=== PATIENT | female | born 1965 | race Caucasian/White ===

== ENCOUNTER → 2017-12-30 07:58 | Outpatient (CLI) | payer MEDICAID, SELFPAY ==
--- NOTE | 2017-12-30 08:01 | HPBI_ITS ---
MAMMOGRAPHY - BILATERAL SCREENING REASON FOR EXAM: Female, 52 years old. Routine annual screening examination. PERTINENT HISTORY: Grandmother with breast cancer. TECHNIQUE: Digital bilateral breast jovani (3D mammographic acquisition) in the CC and MLO projections. 2-D mediolateral oblique (MLO) and craniocaudad (CC) views of both breasts were obtained. CAD: Full Field Digital Mammography with Computer Added Detection was performed. COMPARISON: Comparison is made with prior mammogram dated October 17, 2012 and October 22, 2012. FINDINGS: Breast Composition: The breasts are extremely dense, which lowers the sensitivity of mammography. There are no dominant masses or suspicious calcifications. No other significant abnormalities are identified. There has been no significant change since the prior study. HPBI/SCREENING MAMM (CAD), BILAT IMPRESSION: Stable bilateral screening mammogram. Yearly follow-up mammogram recommended. (A) ASSESSMENT CATEGORY: BIRADS Category 1: Negative. A letter regarding these results will be sent to the patient by the facility within 30 days. Approximately 10% of breast cancers are not detected by mammography. A normal mammogram should not delay biopsy of a clinically suspicious abnormality. [id number] Electronically Signed: Morris Franco MD at 9:58 EST Tel [phone], Service support ,
== END ==
PROVIDERS: Family Provider Family Medicine; PCP Family Medicine; Visit Provider Family Medicine
DX: Z12.31 Encounter for screening mammogram for malignant neoplasm of breast (principal)
CPT/HCPCS: 77063; 77067

== ENCOUNTER → 2018-01-09 13:35 | Outpatient (CLI) | payer MEDICAID, SELFPAY ==
[2018-01-14 15:52] LABS: HPV Reflexed? NOT INDICATED
== END ==
PROVIDERS: Family Provider Family Medicine; PCP Family Medicine; Visit Provider Family Medicine
DX: Z12.4 Encounter for screening for malignant neoplasm of cervix (principal)
CPT/HCPCS: 88175; G0145

== ENCOUNTER → 2020-01-08 12:40 | Outpatient (CLI) | payer MEDICAID, SELFPAY ==
[2017-11-09 22:35] VITALS: BMI 24.4
--- NOTE | 2020-01-08 12:46 | RAD_ITS ---
STUDY: X-RAY - LEFT SHOULDER REASON FOR EXAM: Female, 55 years old. No known injury. Pain in both shoulders for a long time getting worse. Patient states has always had physical jobs. TECHNIQUE: 4 view(s) of the shoulder. COMPARISON: None. FINDINGS: There is moderate degenerative arthrosis of the glenohumeral articulation. Normal acromioclavicular joint. Normal acromion. Normal humeral head and visualized proximal humerus. The soft tissue structures are unremarkable. Normal visualized pulmonary apex. RAD/Shoulder min 2 Views IMPRESSION: Moderate glenohumeral joint arthrosis. Electronically Signed: Jan Elam MD at 11:11 EST Tel , Service support ,
--- NOTE | 2020-01-08 12:46 | RAD_ITS ---
STUDY: X-RAY - RIGHT SHOULDER REASON FOR EXAM: Female, 55 years old. No known injury. Pain in both shoulders for a long time getting worse. Patient states has always had physical jobs. TECHNIQUE: 4 view(s) of the shoulder. COMPARISON: None. FINDINGS: There is moderate degenerative arthrosis of the glenohumeral articulation. Normal acromioclavicular joint. Normal acromion. Normal humeral head and visualized proximal humerus. The soft tissue structures are unremarkable. Normal visualized pulmonary apex. RAD/Shoulder min 2 Views IMPRESSION: Moderate glenohumeral joint arthrosis. Electronically Signed: Jan Elam MD at 11:11 EST Tel , Service support ,
--- NOTE | 2020-01-08 12:50 | RAD_ITS ---
STUDY: X-RAY - LEFT FOOT CLINICAL: Female, 55 years old. No known injury. Pain on the bottom of left heel since May 2019. TECHNIQUE: 3 view(s) of the foot. COMPARISON: None. FINDINGS: Normal talus, calcaneus, and tarsal bones. Normal visualized subtalar, talonavicular, calcaneocuboid, tarsal and tarsometatarsal articulations. Normal metatarsi. There is degenerative arthrosis of the metatarsophalangeal joint of the hallux with a hallux valgus deformity. Normal tibial and fibular sesamoid bones. Normal interphalangeal joint of the great toe. Normal phalanges of the great toe. Normal second through fifth metatarsophalangeal joints. Normal interphalangeal joints and phalanges of the lesser toes. The soft tissue structures are unremarkable. RAD/Foot min 3 Views IMPRESSION: Hallux valgus, bunion and arthrosis of the first MTP joint. Electronically Signed: Perico Cruz MD (Brooks) at 15:34 EST , Service support ,
== END ==
PROVIDERS: PCP Family Medicine; Referring Provider Family Medicine; Visit Provider Family Medicine
DX: M25.511 Pain in right shoulder (principal); M25.512 Pain in left shoulder; M79.672 Pain in left foot
CPT/HCPCS: 73030; 73630

== ENCOUNTER → 2020-04-06 09:43 | Outpatient (CLI) | payer MEDICAID, SELFPAY ==
[2017-11-09 22:35] VITALS: BMI 24.4
--- NOTE | 2020-04-06 09:44 | RAD_ITS ---
STUDY: X-RAY CHEST REASON FOR EXAM: Female, 55 years old. abdominal pain-getting full and uncomfortable quickly when eating, dyspnea, hx of asthma TECHNIQUE: PA and lateral views of the chest. COMPARISON: April 15, 2014. FINDINGS: Cardiac silhouette unremarkable. Pulmonary vascularity unremarkable. Aorta unremarkable. No focal patchy airspace opacities. No pleural effusions. Mild hyperaeration. Upper abdomen unremarkable. Osseous structures intact. No pneumothorax. RAD/Chest PA and Lateral IMPRESSION: No acute cardiopulmonary findings Electronically Signed: Ryne Tellez DO at 10:06 EDT Tel , Service support ,
--- NOTE | 2020-04-06 09:45 | RAD_ITS ---
STUDY: X-RAY - ABDOMEN/PELVIS REASON FOR EXAM: Female, 55 years old. abdominal pain-getting full and uncomfortable quickly when eating, dyspnea, hx of asthma TECHNIQUE: Two AP supine views of the abdomen and pelvis. COMPARISON: None. FINDINGS: Normal visualized lung bases. Constipation. Nonobstructive bowel gas pattern. Osseous structures intact. Minimal lumbar dextroscoliosis. Pelvic phleboliths. RAD/Abdomen Single View IMPRESSION: Constipation Electronically Signed: Ryne Tellez DO at 10:06 EDT Tel , Service support ,
== END ==
PROVIDERS: PCP Family Medicine; Referring Provider Family Medicine; Visit Provider Family Medicine
DX: R10.9 Unspecified abdominal pain (principal); R06.00 Dyspnea, unspecified
CPT/HCPCS: 71046; 74018

== ENCOUNTER → 2020-05-18 09:06 | Outpatient (CLI) | payer MEDICAID, SELFPAY ==
[2020-04-15 10:17] VITALS: BMI 25.8
--- NOTE | 2020-05-19 09:37 | PFT ---
INTRODUCTION: The patient is a 55-year-old female that presents for pulmonary function studies secondary to a diagnosis of asthma. Respiratory therapy reports good patient effort. Bronchodilators were used during testing. INTERPRETATION: Forced expiration spirometry demonstrates no evidence of a large airways obstructive ventilatory defect. There was no significant response to aerosolized bronchodilators. Spirograms are of good quality and plateau normally. Body plus tomography was performed and revealed an elevated TLC to 124% of predicted. Diffusing capacity by single breath CO is within normal limits. IMPRESSION: Probable small airways disease with a component of hyperinflation. Diffusing capacity is preserved.
== END ==
PROVIDERS: PCP Family Medicine; Referring Provider Internal Medicine Critical Care Medicine; Visit Provider Internal Medicine Critical Care Medicine
DX: J45.909 Unspecified asthma, uncomplicated (principal)
CPT/HCPCS: 94060; 94726; 94729

== ENCOUNTER → 2020-06-23 11:32 | Outpatient (CLI) | payer MEDICAID, SELFPAY ==
[2020-04-15 10:17] VITALS: BMI 25.8
[2020-06-14 05:42] VITALS: BMI 26.3
--- NOTE | 2020-06-23 11:35 | BI_ITS ---
MAMMOGRAPHY - BILATERAL SCREENING REASON FOR EXAM: Female, 55 years old. Routine annual screening examination. PERTINENT HISTORY: Grandmother with breast cancer. TECHNIQUE: Digital bilateral breast jean carlos (3D mammographic acquisition) in the CC and MLO projections. 2-D mediolateral oblique (MLO) and craniocaudad (CC) views of both breasts were obtained. CAD: Full Field Digital Mammography with Computer Added Detection was performed. COMPARISON: Comparison is made with prior examination dated 12/30/2017 and 10/17/2012. FINDINGS: Breast Composition: The breasts are extremely dense, which lowers the sensitivity of mammography. There are no dominant masses or suspicious calcifications. No other significant abnormalities are identified. There has been no significant change since the prior study. BI/SCREEN MAMM (CAD) W/JEAN CARLOS BILAT IMPRESSION: Stable bilateral screening mammogram. Yearly follow-up mammogram recommended. (A) ASSESSMENT CATEGORY: BIRADS Category 1: Negative. A letter regarding these results will be sent to the patient by the facility within 30 days. Approximately 10% of breast cancers are not detected by mammography. A normal mammogram should not delay biopsy of a clinically suspicious abnormality. [id number] Electronically Signed: Morris Franco, at 12:59 EDT , Service support ,
== END ==
PROVIDERS: PCP Family Medicine; Referring Provider Family Medicine; Visit Provider Family Medicine
DX: Z12.31 Encounter for screening mammogram for malignant neoplasm of breast (principal)
CPT/HCPCS: 77063; 77067

== ENCOUNTER → 2020-06-28 08:06 | Outpatient (CLI) | payer MEDICAID, SELFPAY ==
[2020-06-14 05:42] VITALS: BMI 26.3
--- NOTE | 2020-06-28 08:08 | ECHOD_ITS ---
Reason For Study: Dyspnea/SOB Procedure This was a 2D Doppler, Color Flow transthoracic echocardiogram. The exam was of adequate technical quality. Exam performed in department. Left Ventricle Normal LV size. Left ventricular systolic function is normal. The estimated ejection fraction is 60 %. No evidence for diastolic dysfunction. No regional wall motion abnormalities noted. Right Ventricle Normal RV size. Normal systolic function. Atria Normal left atrium. Normal right atrium. No doppler evidence for ASD. Mitral Valve There is no mitral annular calcification. Normal mitral valve. Trivial mitral valve insufficiency. Tricuspid Valve Normal tricuspid valve. Trivial tricuspid valve insufficiency. Aortic Valve Trisinus/trileaflet aortic valve. Normal aortic valve. Pulmonic Valve The pulmonic valve is not well visualized. Great Vessels Normal sized aortic root. Pericardium/Pleural No pericardial effusion. MMode/2D Measurements & Calculations LVIDd: 5.0 cm IVSd: 1.1 cm Ao root diam: 3.2 cm LVIDs: 3.3 cm LVPWd: 0.95 cm LA dimension: 3.6 cm RVDd: 3.3 cm FS: 34.4 % LAV(MOD-bp): 46.2 ml LA A4 area: 17.2 cm2 RA A4 area: 12.0 cm2 LAV(MOD-bp) Indexed: 25.1 ml/m2 LAV(MOD-sp2): 50.1 ml LAV(MOD-sp4): 43.8 ml Time Measurements MV dec time: 0.24 sec Doppler Measurements & Calculations MV E max satnam: 73.4 cm/sec Lat Peak E' Satnam: 10.8 cm/sec Med Peak E' Satnam: 10.6 cm/sec MV A max satnam: 36.9 cm/sec E/E' lat: 6.8 E/E' med: 6.9 MV E/A: 2.0 MV V2 max: 77.6 cm/sec MV P1/2t max satnam: 78.2 cm/sec Ao V2 max: 137.5 cm/sec MV max P.4 mmHg MV P1/2t: 92.8 msec Ao max P.6 mmHg MV V2 mean: 44.0 cm/sec MV dec slope: 246.8 cm/sec2 MV mean P.88 mmHg MVA(P1/2t): 2.4 cm2 MV V2 VTI: 23.2 cm LV V1 max: 102.7 cm/sec PA V2 max: 80.9 cm/sec LV V1 max P.2 mmHg Interpretation Summary Left ventricular systolic function is normal. The estimated ejection fraction is 60 %. Trivial mitral valve insufficiency. Trivial tricuspid valve insufficiency. No evidence for diastolic dysfunction. Ordering Physician: Art Stovall Referring Physician: Charo Blackmon Performed By: Barney Reza RCS
== END ==
PROVIDERS: PCP Family Medicine; Referring Provider Internal Medicine Critical Care Medicine; Visit Provider Internal Medicine Critical Care Medicine
DX: R06.02 Shortness of breath (principal); R06.00 Dyspnea, unspecified
CPT/HCPCS: 93306

== ENCOUNTER → 2020-07-05 06:58 | Outpatient (CLI) | payer MEDICAID, SELFPAY ==
[2020-06-14 05:42] VITALS: BMI 26.3
--- NOTE | 2020-07-05 13:51 | BRONCHALL ---
Bronchoprovocation Challenge - Bronchoprovocation Challenge Bronchoprovocation Challenge: INTRODUCTION: The patient is a 55-year-old female who presents for a bronchoprovocation challenge secondary to a diagnosis of dyspnea. Respiratory therapy reported good patient effort and reproducible results. INTERPRETATION: Initial spirometry did not show any large airways obstructive ventilatory defect and preserved airflows throughout. The patient was then given progressively increasing doses of methacholine in a standardized fashion. At no point during testing, did the patient experienced a 20% drop in FEV1. IMPRESSION: Negative methacholine challenge.
== END ==
PROVIDERS: PCP Family Medicine; Referring Provider Internal Medicine Critical Care Medicine; Visit Provider Internal Medicine Critical Care Medicine
DX: R06.00 Dyspnea, unspecified (principal)
CPT/HCPCS: 94070; 95070; J3490; J7674

== ENCOUNTER → 2020-08-30 11:51 | Outpatient (CLI) | payer MEDICAID, SELFPAY ==
[2020-06-14 05:42] VITALS: BMI 26.3
--- NOTE | 2020-08-30 11:54 | RAD_ITS ---
HISTORY: third digit pain at the DIP joint ADDITIONAL HISTORY: None provided. EXAMINATION/TECHNIQUE: XR Hand Min 3 Views Right Number of images including paperwork: 3 COMPARISON: None FINDINGS: BONES: No acute fracture. JOINTS: No subluxation. SOFT TISSUES: No distinct foreign body. RAD/Hand Min 3 Views IMPRESSION: No acute osseous abnormality. at 0811 Reported and signed by: Meredith Mead MD Electronically Signed: Meredith Mead MD at 8:11 EDT Tel , Service support ,
== END ==
PROVIDERS: PCP Family Medicine; Referring Provider Chiropractor; Visit Provider Chiropractor
DX: M79.644 Pain in right finger(s) (principal); M79.641 Pain in right hand
CPT/HCPCS: 73130

== ENCOUNTER → 2021-07-03 08:59 | Outpatient (CLI) | payer MEDICAID, SELFPAY ==
[2020-09-22 08:51] VITALS: BMI 26.3
--- NOTE | 2021-07-03 09:04 | RAD_ITS ---
STUDY: X-RAY CHEST REASON FOR EXAM: Female, 56 years old. Left rib pain. TECHNIQUE: Frontal and lateral views of the chest. COMPARISON: None. FINDINGS: The lungs are clear and expanded. There is no demonstrated pleural abnormality. Normal size heart. Normal mediastinum and unruly. Normal visualized pulmonary arteries. Normal visualized aortic arch and descending thoracic aorta. Normal visualized thoracic spine. Normal visualized ribs, clavicles, and shoulders. There is no demonstrated abnormality of the visualized soft tissue structures of the upper abdomen. RAD/Chest PA and Lateral IMPRESSION: Normal x-ray examination of the chest. Electronically Signed: Cliff Bennett MD at 9:18 EDT , Service support ,
== END ==
PROVIDERS: PCP Family Medicine; Referring Provider Family Medicine; Visit Provider Family Medicine
DX: R07.81 Pleurodynia (principal)
CPT/HCPCS: 71046

== ENCOUNTER 2021-09-05 09:30 | Outpatient (RCR) | payer MEDICAID, SELFPAY ==
[2020-09-22 08:51] VITALS: BMI 26.3
--- NOTE | 2021-07-11 09:49 | HP.PTEVAL ---
Patient's Visit Information CHARO CROOK is a 56 year old F referred to Physical Therapy by Dr. Charo Blackmon DO with a diagnosis of L rib pain. Date of Evaluation: 07/11/21 Physical Therapist: MANFRED Hill - Visit Plan Frequency: 2x /Week Duration: 6 Weeks Plan: 2X/ week for 4-6 weeks for lat stretches, thoracic extension mobs, pec stretches, postural exercises, L shoulder strength with HEP. HEP: corner stretch and lat stretch seated using a table - Subjective Pt was having rib pain under her L lower ribs and her Dr noticed that her top rib is out. It bothers her the most if she is doing paperwork to put her arm on a higher table it hurts on her upper rib. She almost has pain from her upper L rib to her lower L rib. She is limited on her L side and does not push on her L side and she is L handed. Sleeping is painful for her and she shifts constantly. She is most comfortable laying on her back but she does sleep with her legs crossed across her body and hurts more to sleep laying on her L side. She does heavy work outside and just deals with the pain. She has some wrigth pain and thinks that it is unrelated to this... along time ago she had a little thoracic injury. She has tightness on her neck. She has some cramping with stretching. She knows that she has arthritis in the winter. She can not wash her back and thinks that it is her shoulder injuries. She has weakness and clicking and achy in her AC joint. They did an x-ray a good year ago. Twisting increases her lower rib pain ( this has been going on for 1.5 years now). - Pain L clavicle pain Pain Intensity (Out of 10): 3 L sided lower rib pain Pain Intensity (Out of 10): 3 - Objective UE MMT: L shld flex 4-/5 and R 4/5, L shld abd 4-/5 and R 4/5, L ER 3+/5 and R ER 4/5, R IR 4/5 and L 4-/5. LE MMT: B hip flex 4/5, B knee ext 4+/5, B knee flex 4-/5. Shoulder AROM: at first pt was only able to get to approx 90 degrees but when cued she could stretch to about approx 160 degrees. Pt has full ER and IR to approx L1 B. Palpation: pt was tender under L clavicle near SC joint on the L. She also has some tenderness at the L AC joint. Pt has extremely tight lats. Thoracic extension mobs.... very tight with light mobs. Pt has tight B pecs - Balance/Special Test Scores Quick DASH Score: 27.2725 - Goals Goal 1:: I HEP Goal Time Frame: 4-6 Weeks Goal 2:: Decrease L shoulder pain with writing with arm up on a table and sleeping positions through the night to be able to sleep through the night Goal Time Frame: 4-6 Weeks Goal 3:: Increase B shoulder AROM to full pain free ROM Goal Time Frame: 4-6 Weeks Goal 4:: Increase L shoulder strength by 1/2 muscle grade (at time of eval: UE MMT: L shld flex 4-/5 and R 4/5, L shld abd 4-/5 and R 4/5, L ER 3+/5 and R ER 4/5, R IR 4/5 and L 4-/5) Goal Time Frame: 4-6 Weeks Goal 5:: sit with upright posture during treatment sessions Goal Time Frame: 4-6 Weeks - Rehabilitation Potential Rehabilitation Potential: Good - Anticipated Interventions Patient/Client Instruction: Educate patient on: Condition, Plan of Care For the Purpose of:: To decrease pain, To increase ROM, To improve nutrient delivery to tissue, To improve muscle performance and motor function, To improve ability to perform ADL's, To increase tolerance to activity/condition/position, To improve performance and independence with ADL's, To improve ability of physical actions for home/community/work/leisure, To improve health of tissue, To decrease soft tissue restriction, To increase flexibility/ROM Therapeutic Exercise to Include: Strength training, Body mechanics, Postural training, Flexibilty training, Neuromotor development, Passive ROM, Active ROM, Dynamic Lumbar Stabilization, Scapular Strength/Stabilization For the Purpose of:: To decrease pain, To increase ROM, To improve nutrient delivery to tissue, To improve muscle performance and motor function, To improve ability to perform ADL's, To increase tolerance to activity/condition/position, To improve performance and independence with ADL's, To improve ability of physical actions for home/community/work/leisure, To improve health of tissue, To decrease soft tissue restriction, To increase flexibility/ROM Manual Therapy Techniques to Include: Mobilization, Passive ROM, Functional dry needling, Soft tissue mobilization For the Purpose of:: To decrease pain, To increase ROM, To improve nutrient delivery to tissue, To improve muscle performance and motor function, To improve ability to perform ADL's, To increase tolerance to activity/condition/position, To improve performance and independence with ADL's, To decrease level of supervision to perform tasks, To improve ability of physical actions for home/community/work/leisure, To improve health of tissue, To decrease soft tissue restriction, To increase flexibility/ROM Thank you for the opportunity to evaluate your patient. For Medicare and Medicare HMO plans, please review the plan of care and approve it. It will need to be FAXED BACK to us at [phone] for Medicare purposes. For Medicare only, by signing this I certify the plan of care. Please let me know if there are questions or concerns regarding this plan of care. Physician Signature: Date:
--- NOTE | 2021-08-08 09:43 | HP.PTREVAL_ITS ---
Dr. Charo Blackmon, DO, It has been my pleasure to treat CHARO CROOK over the last 8 visits for L rib pain. Please see the progress note below for an update on the physical therapy plan of care! Subjective: Pt reports that she is better overall. She is not 100% better but better..... She still is tight. Her collar bone pain is better. She wants her shoulders to get more limber.... Pt complaining of some random hand N&T that comes and goes now. Objective/Function: -Phalens sign for B carpal tunnel. UE MMT: L shld flex 4- /5 and R 4/5, L shld abd 4-/5 and R 4/5, L ER 3+/5 and R ER 4/5, R IR 4/5 and L 4-/5) Plan Plan: 2x/week for 2 weeks for lat stretches, thoracic extension mobs, pec stretches, postural exercises, L shoulder strength with HEP Balance/Gait/Functional tests - Balance/Special Test Scores Quick DASH Score: 31.8175 Goals Goal 1:: I HEP Goal Time Frame: 4-6 Weeks Goal Progress: Goal Met Goal 2:: Decrease L shoulder pain with writing with arm up on a table and sleeping positions through the night to be able to sleep through the night Goal Time Frame: 4-6 Weeks Goal Progress: Progressing Goal 3:: Increase B shoulder AROM to full pain free ROM Goal Time Frame: 4-6 Weeks Goal Progress: Progressing Goal 4:: Increase L shoulder strength by 1/2 muscle grade (at time of eval: UE MMT: L shld flex 4-/5 and R 4/5, L shld abd 4-/5 and R 4/5, L ER 3+/5 and R ER 4/5, R IR 4/5 and L 4-/5) Goal Time Frame: 4-6 Weeks Goal 5:: sit with upright posture during treatment sessions Goal Time Frame: 4-6 Weeks Goal Progress: Progressing Anticipated Interventions Patient/Client Instruction: Educate patient on: Condition, Plan of Care For the Purpose of:: To decrease pain, To increase ROM, To improve nutrient delivery to tissue, To improve muscle performance and motor function, To improve ability to perform ADL's, To increase tolerance to activity/condition/position, To improve performance and independence with ADL's, To improve ability of physical actions for home/community/work/leisure, To improve health of tissue, To decrease soft tissue restriction, To increase flexibility/ROM Therapeutic Exercise to Include: Strength training, Body mechanics, Postural training, Flexibilty training, Neuromotor development, Passive ROM, Active ROM, Dynamic Lumbar Stabilization, Scapular Strength/Stabilization For the Purpose of:: To decrease pain, To increase ROM, To improve nutrient delivery to tissue, To improve muscle performance and motor function, To improve ability to perform ADL's, To increase tolerance to activity/condition/position, To improve performance and independence with ADL's, To improve ability of physical actions for home/community/work/leisure, To improve health of tissue, To decrease soft tissue restriction, To increase flexibility/ROM Manual Therapy Techniques to Include: Mobilization, Passive ROM, Functional dry needling, Soft tissue mobilization For the Purpose of:: To decrease pain, To increase ROM, To improve nutrient delivery to tissue, To improve muscle performance and motor function, To improve ability to perform ADL's, To increase tolerance to activity/condition/position, To improve performance and independence with ADL's, To decrease level of supervision to perform tasks, To improve ability of physical actions for home/community/work/leisure, To improve health of tissue, To decrease soft tissue restriction, To increase flexibility/ROM Please do not hesitate to contact me at [phone] by phone or if you have questions or concerns regarding this new plan of care! Sincerely, MANFRED Hill
--- NOTE | 2021-09-05 10:01 | HP.PTDCSUM ---
It has been my pleasure to treat CHARO CROOK referred by Dr. Charo Blackmon DO, with the diagnosis of L rib pain for a total of 14 visit(s). Discharge Date: 09/05/21 Please see the following information for a summary of their discharge status. Subjective: Yesterday she was having low grade pain that she has not has had but she was doing a lot of raking. She thinks that she will def work out this winter. She feels comfortable with what she needs to do on her own. L clavicle pain Pain Intensity (Out of 10): 0 L sided lower rib pain Pain Intensity (Out of 10): 0 % Improvement: 90 Objective/Function: UE MMT: L shld flex 4/5 and R 4/5, L shld abd 4/5 and R 4/5, L ER 3-/5 and R ER 4/5, R IR 4/5 and L 4/5). B [place] AROM: WFL B. Pt sits with upright posture during treatment sessions. Goal 1:: I HEP Goal Progress: Goal Met Goal 2:: Decrease L shoulder pain with writing with arm up on a table and sleeping positions through the night to be able to sleep through the night Goal Progress: Goal Met Goal 3:: Increase B shoulder AROM to full pain free ROM Goal Progress: Goal Met Goal 4:: Increase L shoulder strength by 1/2 muscle grade (at time of eval: UE MMT: L shld flex 4-/5 and R 4/5, L shld abd 4-/5 and R 4/5, L ER 3+/5 and R ER 4/5, R IR 4/5 and L 4-/5) Goal Progress: Goal Met Goal 5:: sit with upright posture during treatment sessions Goal Progress: Goal Met Plan: DC PT to [facility] Discharge Comments: DC PT to [facility] If there are questions or concerns regarding this patient's physical therapy, please feel free to call me at [phone]. Thank you for the referral of this patient. Sincerely, Priya Bhardwaj, MPT Balance/Gait/Functional tests - Balance/Special Test Scores Quick DASH Score: 18.1800
== END 2021-09-05 19:00 | disposition home or self-care (01) ==
LOC: PT 09:30
PROVIDERS: PCP Family Medicine; Referring Provider Family Medicine; Visit Provider Family Medicine
DX: R07.81 Pleurodynia (principal)
CPT/HCPCS: 97110; 97162; 97530

== ENCOUNTER → 2022-08-21 | Outpatient (CLI) | payer MEDICAID, SELFPAY ==
--- NOTE | 2022-08-21 10:22 | BI_ITS ---
MAMMOGRAPHY - BILATERAL SCREENING REASON FOR EXAM: Female, 57 years old. Routine annual screening examination. PERTINENT HISTORY: Grandmother with breast cancer. TECHNIQUE: Digital bilateral breast jean carlos (3D mammographic acquisition) in the CC and MLO projections. 2-D mediolateral oblique (MLO) and craniocaudad (CC) views of both breasts were obtained. CAD: Full Field Digital Mammography with Computer Added Detection was performed. COMPARISON: Comparison is made with prior study 06/23/2020 and 12/30/2017. FINDINGS: Breast Composition: The breasts are extremely dense, which lowers the sensitivity of mammography. There are no dominant masses or suspicious calcifications. No other significant abnormalities are identified. There has been no significant change since the prior study. BI/SCRN MAMM (CAD)W/JEAN CARLOS BILAT IMPRESSION: Stable bilateral screening mammogram. Yearly follow-up mammogram recommended. (A) ASSESSMENT CATEGORY: BIRADS Category 1: Negative. A letter regarding these results will be sent to the patient by the facility within 30 days. Approximately 10% of breast cancers are not detected by mammography. A normal mammogram should not delay biopsy of a clinically suspicious abnormality. [id number] Electronically Signed: Morris Franco MD at 13:14 EDT ,
== END | disposition home or self-care (01) ==
LOC: OPBI 10:18
PROVIDERS: PCP Family Medicine; Visit Provider Family Medicine
DX: Z12.31 Encounter for screening mammogram for malignant neoplasm of breast (principal); Z80.3 Family history of malignant neoplasm of breast
CPT/HCPCS: 77063; 77067

== ENCOUNTER → 2022-08-30 | Outpatient (CLI) | payer MEDICAID, SELFPAY ==
--- NOTE | 2022-08-30 11:34 | RAD_ITS ---
STUDY: X-RAY - CERVICAL SPINE REASON FOR EXAM: Female, 57 years old. LEFT SIDE WEAKNESS TECHNIQUE: 5 view(s) of the cervical spine were obtained. COMPARISON: None FINDINGS: Normal anterior atlantoaxial articulation. Normal odontoid process. Moderate anterior osteophyte formation C3-4 C4-5 mild C5-6. Severe loss of disc space height at C4-5 C5-6 and C6-7. There is moderate bilateral neural foraminal encroachment C4-C6. The soft tissue structures are unremarkable. RAD/Cerv Spine 4 or 5 Views IMPRESSION: Degenerative changes as above. Electronically Signed: Gomez Anderson MD, YARI at 12:31 EDT ,
== END | disposition home or self-care (01) ==
LOC: MTRAD 11:32
PROVIDERS: PCP Family Medicine; Referring Provider Family Medicine; Visit Provider Family Medicine
DX: M54.12 Radiculopathy, cervical region (principal)
CPT/HCPCS: 72050

== ENCOUNTER → 2022-09-05 | Outpatient (CLI) | payer MEDICAID, SELFPAY ==
--- NOTE | 2022-09-05 13:09 | US_ITS ---
STUDY: ULTRASOUND OF THE FEMALE PELVIS - COMPLETE REASON FOR EXAM: Female, 57 years old. Perimenopausal bleeding LMP: 07/02/2022 TECHNIQUE: Transabdominal and Transvaginal TECHNICAL QUALITY: Adequate. COMPARISON: None. FINDINGS: The uterus is retroverted and is in a midline position. The uterus measures 5.1 x 3.8 x 2.9 cm. Normal uterine cervix. The endometrium measures 4 mm in thickness, and is hyperechoic. There is no demonstrated endometrial mass. There is a small 1.1 cm fibroid. I.U.D. - The patient does not have an I.U.D. The right ovary is visualized. The right ovary measures 1.8 x 2.1 x 1.3 cm. There is a simple 1.0 cm follicular cyst.. There is normal arterial and normal venous vascularity. The left ovary is visualized. The left ovary measures cm. There is no left ovarian cyst or ovarian mass. There is no visualized left adnexal mass or complex lesion. There is normal arterial and normal venous vascularity. There is no fluid in the cul-de-sac. The bladder is sonographically normal US/Transvaginal Non- IMPRESSION: No suspicious sonographic findings, small uterine fibroid, simple right adnexal cyst, no specific follow-up needed Electronically Signed: Ravinder Murry MD at 14:45 EDT ,
--- NOTE | 2022-09-05 13:09 | US_ITS ---
STUDY: ULTRASOUND OF THE FEMALE PELVIS - COMPLETE REASON FOR EXAM: Female, 57 years old. Perimenopausal bleeding LMP: 07/02/2022 TECHNIQUE: Transabdominal and Transvaginal TECHNICAL QUALITY: Adequate. COMPARISON: None. FINDINGS: The uterus is retroverted and is in a midline position. The uterus measures 5.1 x 3.8 x 2.9 cm. Normal uterine cervix. The endometrium measures 4 mm in thickness, and is hyperechoic. There is no demonstrated endometrial mass. There is a small 1.1 cm fibroid. I.U.D. - The patient does not have an I.U.D. The right ovary is visualized. The right ovary measures 1.8 x 2.1 x 1.3 cm. There is a simple 1.0 cm follicular cyst.. There is normal arterial and normal venous vascularity. The left ovary is visualized. The left ovary measures cm. There is no left ovarian cyst or ovarian mass. There is no visualized left adnexal mass or complex lesion. There is normal arterial and normal venous vascularity. There is no fluid in the cul-de-sac. The bladder is sonographically normal US/Pelvic (Non ) IMPRESSION: No suspicious sonographic findings, small uterine fibroid, simple right adnexal cyst, no specific follow-up needed Electronically Signed: Ravinder Murry MD at 14:45 EDT ,
== END | disposition home or self-care (01) ==
LOC: US 13:07
PROVIDERS: PCP Family Medicine; Referring Provider Family Medicine; Visit Provider Family Medicine
DX: N95.0 Postmenopausal bleeding (principal)
CPT/HCPCS: 76830; 76856

== ENCOUNTER → 2022-10-04 | Outpatient (CLI) | payer MEDICAID, SELFPAY ==
[2022-10-14 18:12] LABS: HPV Reflexed? YES, CHARGE PATIENT
== END | disposition home or self-care (01) ==
LOC: BFHLAB 13:55 → LABSPEC 13:56
PROVIDERS: PCP Family Medicine; Visit Provider Family Medicine
DX: Z12.4 Encounter for screening for malignant neoplasm of cervix (principal); Z01.419 Encounter for gynecological examination (general) (routine) without abnormal findings
CPT/HCPCS: 87624; 88175; G0145

== ENCOUNTER 2022-10-08 09:00 | Outpatient (RCR) | payer MEDICAID, SELFPAY ==
--- NOTE | 2022-09-11 14:21 | HP.PTEVAL_ITS ---
Patient's Visit Information CHARO CROOK is a 57 year old F referred to Physical Therapy by Dr. Charo Blackmon DO with a diagnosis of NECK PAIN, CERVICAL RADICULOPATHY. Date of Evaluation: 09/11/22 Physical Therapist: Mirta Tijerina PT, Cert MDT - Visit Plan Frequency: 2-3x /Week Duration: 4-6 Weeks Plan: MONITOR FOR AND AVOID PERIPHERALIZATION OF SX'S. TREATMENT ROM AND INTENSITY WITHOUT INCREASING PAIN, NUMBNESS OR TINGLING. CERVICAL US AND STM X 6. POSTURE CORRECTION/STRENGTHENING, INSTRUCTION IN APPROPRIATE BODY MECHANICS AND ACTIVITY MODIFICATIONS. SCAPULAR STABILIZATION. HEP INSTRUCTION - CONSIDER THE FOLLOWING EX'S: REP RET IN SITTING. REP RET IN LYING. SCAP SQUEEZES. DEEP NECK FLEXOR LIFT. PRONE W'S. UE WALL SLIDES. PRONE ROWS. UE TBAND WALL WALKS. ANTERIOR/MIDDLE SCALENE STRETCH. UPPER TRAP STRETCH. LEVATOR SCAPULAE STRETCH. 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 WORKING LESS THAN 20 HOURS A WEEK. Present symptoms: LEFT NECK PAIN. LEFT ARM, FOREARM AND HAND SYMPTOMS THAT PATIENT DESCRIBES A FLUSHED TYPE OR OTHER TYPE FEELING - HARD TO DESCRIBE. SYMPTOMS FROM THE ELBOW DOWN TO FINGERS ARE OF MOST CONCERN TO PATIENT AND SOMETIMES FEELS WEAK. MINOR TINGLING IN RIGHT FINGERS. RECENT R ELBOW PAIN - INTERMITTENT. Present since: AT LEAST A FEW MONTHS. Pain Scale: Worst - 2/10 Least - 0/10. Currently: 0/10. Commenced as a result of: NO APPARENT REASON. Symptoms at onset: CHEST PAIN AND TINGLING IN L UE. Worse: UNSURE. SEEMS RANDOM. Better: MAYBE CHANGE OF POSITION BUT USUALLY GOES AWAY ON ITS OWN. Disturbed sleep: YES. Previous history/Previous treatment: UNREMARKABLE. NO NECK SURGERY. NO L SHLD SURGERY. NO PT. CHIROPRACTIC TREATMENTS GREATER THAN 2 YEARS AGO FOR A HANDFUL OF VISITS FOR L CLAVICLE POPPING OUT AND SPINAL ALIGNMENT. HISTORY OF LEFT SHLD WEAKNESS AND DETERIORATION OF MUSCLES. NECK INJRUY spring - MINOR - PASSING SOMEONE OVER HEAD IN [place] WITH OTHERS AND PERSON FELL ON HER - FEELS SHE RECOVED FROM THAT. Dizziness: NO. Tinnitis: YES - MINOR. Nausea: NO. Shortness of Breath: NO. Difficulty Swollowing: NO. Gait: NO NEW CHANGES. Unexplained weight loss: NO. Imaging: MODERATE TO SEVERE DEGENERATIVE CHANGES IN NECK. MODERATE DEGENERATIVE CHANGES IN FAROOQ SHLD'S. PMH/Recent major surgery: R ELBOW PAIN WITHIN LAST MONTH AND TOOK FLEXERIL FOR IT AND IT HELPED. MALOXACAM FOR R FOOT PLANTAR FASCITIS A FEW MONTHS AGO AND HELPED. MINOR ASTHMA. OTHER: PATIENT IS L HANDED. REPORTS SOME RECENT HISTORY OF CHEST PAIN - DR. BUSTILLOS IS AWARE. PT FOR L CLAVICLE AND SHLD PAIN ABOUT A YEAR AGO AND IT HELPED. EMG/NCS PENDING IN 2 MONTHS. - Objective Sitting Posture/Standing Posture: POOR. FH. RSH'S. Active Correction of posture: NE. Other Observations: INDEP GAIT AND TRANSFERS. Sensory deficit: ALTERED SENSATION OF LEFT UE COMPARED TO RIGHT. ROM deficit: APPROX 20% DECREASED FAROOQ SHLD ROM ALL PLANES. Motor deficit: L DRIER BELT CONVEYOR STRENGTH 80 LBS AND R 85 LBS. FAROOQ UE STRENGTH GROSSLY 5/5 WITH MMT'ING IN MID-RANGE WITH COMPENSTATIONS. Dural Signs: POSITIVE L UE. Cervical Mvmt Loss: Flex: NIL. Pro: NIL. Ext: MIN. Ret: MIN. RSB: MIN. LSB: MOD. R Rot: MIN. L Rot: MOD. PATIENT DENIES PAIN WITH CERVICAL ROM TESTING ALL PLANES. Postural strength: FAIR. Palpation: NO ACUTE CERVICAL OR OCCIPUT TENDERNESS. INCREASED MUSCLE TONE FAROOQ UT'S. NO ACUTE FAROOQ SHLD, AC JT OR STERNO CLAVICULAR TENDERNESS. SEATED CERVICAL DISTRACTION TESTING: PATIENT REPORTS IT FELT GOOD BUT OVER-ALL NO EFFECT. - Balance/Special Test Scores Oswestry Neck Score: 10 - Goals Goal 1:: DECREASE C/O NECK PAIN Goal Time Frame: 4-6 Weeks Goal 2:: IMPROVE PERSONAL CARE, LIFTING, READING, SLEEP, WORK, DRIVING AND RECREATIONAL FUNCTION Goal Time Frame: 4-6 Weeks Goal 3:: INSTRUCT IN PROPHYLAXIS Goal Time Frame: 4-6 Weeks - Anticipated Interventions Patient/Client Instruction: Educate patient on: Condition, Plan of Care, Risk Factors For the Purpose of:: To improve self management Therapeutic Exercise to Include: Strength training, Body mechanics, Postural training, Flexibilty training, Neuromotor development, Scapular Strength/Stabilization For the Purpose of:: To decrease pain, To increase ROM, To improve muscle performance and motor function, To increase tolerance to activity/condition/position, To improve ability of physical actions for home/community/work/leisure Manual Therapy Techniques to Include: Soft tissue mobilization For the Purpose of:: To decrease pain, To improve nutrient delivery to tissue Cryotherapy (ice pack, ice massage): Yes Thermo therapy (hot pack): Yes Ultrasound (thermal/non thermal): Yes For the Purpose of:: To decrease pain, To improve nutrient delivery to tissue Thank you for the opportunity to evaluate your patient. For Medicare and Medicare HMO plans, please review the plan of care and approve it. It will need to be FAXED BACK to us at [phone] for Medicare purposes. For Medicare only, by signing this I certify the plan of care. Please let me know if there are questions or concerns regarding this plan of care. Physician Signature: Date:
--- NOTE | 2023-02-14 11:18 | HP.PTDCNRP_ITS ---
LEE CROOK was seen in my office for initial evaluation on 09/11/22. The following Plan of Care was established for this patient: Initial Frequency: 2-3x /Week Initial Duration: 4-6 Weeks Patient/Client Instruction: Educate patient on: Condition, Plan of Care, Risk Factors For the Purpose of:: To improve self management Therapeutic Exercise to Include: Strength training, Body mechanics, Postural training, Flexibilty training, Neuromotor development, Scapular Strength/Stabilization For the Purpose of:: To decrease pain, To increase ROM, To improve muscle performance and motor function, To increase tolerance to activity/cond ition/position, To improve ability of physical actions for home/community/work/leisure Manual Therapy Techniques to Include: Soft tissue mobilization For the Purpose of:: To decrease pain, To improve nutrient delivery to tissue Cryotherapy (ice pack, ice massage): Yes Thermo therapy (hot pack): Yes Ultrasound (thermal/non thermal): Yes For the Purpose of:: To decrease pain, To improve nutrient delivery to tissue This patient was last seen in our office 10/08/22. Pertinent comments regarding their Physical therapy will appear below: This patient has not returned to Physical Therapy and is appropriate to return to MD for further follow-up as needed. At this point I will be discontinuing this patient from physical therapy. I would be happy to see this patient again in the future if found appropriate by the physician. Thank you! Mirta Tijerina, PT, Cert MDT Balance/Gait/Functional tests - Balance/Special Test Scores Oswestry Neck Score: 10
== END 2022-10-08 19:00 | disposition home or self-care (01) ==
LOC: PT 09:00
PROVIDERS: PCP Family Medicine; Referring Provider Family Medicine; Visit Provider Family Medicine
DX: M54.12 Radiculopathy, cervical region (principal)
CPT/HCPCS: 97035; 97162; 97530

== ENCOUNTER → 2022-12-17 | Outpatient (CLI) | payer MEDICAID, SELFPAY ==
--- NOTE | 2022-12-17 17:21 | NEURO_ITS ---
NCS and/or EMG Patient Report Ordering Doctor: Charo Blackmon DATE OF SERVICE: 12/17/22 Findings: Nerve conduction studies were performed in the right and left upper extremities. The right median motor study recording the abductor pollicis brevis showed a borderline amplitude, but was technically challenging and likely submaximal response given the lack of associated findings (e.g. normal sensory response, normal strength and normal needle exam), The right median motor study normal distal latency and slightly reduced conduction velocity. The right ulnar motor study recording the abductor digiti minimi showed a normal amplitude, normal distal latency and normal conduction velocity. No conduction block or focal slowing was present across the elbow. The right median sensory response recording digit two showed a normal amplitude, latency and conduction velocity. The right ulnar sensory response recording d igit five showed a normal amplitude, latency and conduction velocity. The right radial sensory response recording over the extensor snuff box showed a normal amplitude, latency and conduction velocity. The left median motor study recording the abductor pollicis brevis showed a normal amplitude, prolonged distal latency and mildly slowed conduction velocity. The left ulnar motor study recording the abductor digiti minimi showed a normal amplitude, normal distal latency and normal conduction velocity. No conduction block or focal slowing was present across the elbow. The left median sensory response recording digit two showed a normal amplitude, prolonged latency and slowed conduction velocity. The left ulnar sensory response recording digit five showed a normal amplitude, latency and conduction velocity. The left radial sensory response recording over the extensor snuff box showed a normal amplitude, latency and conduction velocity. Right median-ulnar lumbrical / interosseous motor latencies showed a normal median latency compared to the ulnar. Left median-ulnar lumbrical / interosseous motor latencies showed a prolonged median latency compared to the ulnar. Needle EMG of the right upper extremity and cervical paraspinal muscles was performed. No denervation was seen in any muscle. Motor units in the triceps and flexor carpi radialis were large amplitude and long duration. All other motor unit morphology, activation and recruitment patterns were normal. Needle EMG of the left upper extremity and cervical paraspinal muscles was performed. No denervation was seen in any muscle. Motor units in the abductor pollicis brevis were mildly enlarge, but otherwise unremarkable. All other motor unit morphology, activation and recruitment patterns were normal. Impression: This is an abnormal study. 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 These findings are compatible with the clinical diagnosis of carpal tunnel syndrome. In addition, there was electrophysiologic evidence of a chronic C7 radiculopathy in the right upper extremity without active features. Oz Craig D.O. Multi Select Codes Neurology Neurology Interp Codes: 30303-97 Musc test done w/n test comp (interp) (Qty:2) and 21553-68 Nrv cndj test 13/> studies (interp)
== END | disposition home or self-care (01) ==
LOC: PSN 15:21
PROVIDERS: PCP Family Medicine; Visit Provider Family Medicine
DX: M54.12 Radiculopathy, cervical region (principal); R29.898 Other symptoms and signs involving the musculoskeletal system
CPT/HCPCS: 95886; 95913

== ENCOUNTER → 2023-04-04 | Outpatient (CLI) | payer MEDICAID, SELFPAY ==
--- NOTE | 2023-04-04 11:22 | MRI_ITS ---
INDICATION: cervical radiculopathy on ncs, pian in L hand x 6 months EXAMINATION: MRI - MR Spine Cervical W/O Contrast TECHNIQUE: Multiplanar and multisequence MR images of the cervical spine were performed. IV Contrast Dosage and Agent: None. COMPARISON: 08/30/2022 FINDINGS: VERTEBRAE: Normal vertebral bodies and posterior elements. VERTEBRAL ALIGNMENT: Normal, including the craniocervical junction and cervicothoracic junction. No spondylolisthesis. There is preservation of the normal cervical lordosis. CERVICAL SPINAL CORD: Unremarkable in signal and morphology. C2/C3: Normal disc height and morphology. Normal spinal canal and neuroforamina. C3/C4, C4/C5, C5/C6, C6/C7: Endplate spondylosis. Central and paracentral disc bulge. Degenerative changes of the bilateral facet joints and uncovertebral joints. [id number] narrowing of the central canal and the bilateral intervertebral neural foramina more prominent at C4-5 and C5-6. C7/T1: There is small broad-based disc bulge without significant stenosis of the spine, or neural foraminal . NECK SOFT TISSUES: No prevertebral soft tissue swelling. There is no cervical adenopathy. MRI/Spine Cervical (Routine) IMPRESSION: Multilevel degenerative disc disease as described above. Electronically Signed: Cleo Alvarado MD at 4:50 EDT ,
== END | disposition home or self-care (01) ==
LOC: MRI 11:06
PROVIDERS: PCP Family Medicine; Referring Provider Orthopaedic Surgery Sports Medicine; Visit Provider Orthopaedic Surgery Sports Medicine
DX: M54.12 Radiculopathy, cervical region (principal)
CPT/HCPCS: 72141

== ENCOUNTER → 2024-11-16 | Outpatient (CLI) | payer MEDICAID, SELFPAY ==
--- NOTE | 2024-11-16 13:38 | BI_ITS ---
MAMMOGRAPHY - BILATERAL SCREENING 3-D TOMOSYNTHESIS REASON FOR EXAM: Female, 59 years old. SCREENING PERTINENT HISTORY: No significant family history. TECHNIQUE: 2-D mammograms and 3-D Tomosynthesis of the breast (s) were performed. CAD was performed. COMPARISON: 08/21/2022 FINDINGS: The breast composition is heterogeneously dense that can obscure small breast masses. Scattered benign calcifications are seen. No dense spiculated masses or suspicious microcalcifications are identified. No architectural distortion is identified. There is no skin thickening or retraction. There has been no significant change since the prior study. BI/SCRN MAMM (CAD)W/JEAN CARLOS BILAT IMPRESSION: No mammographic signs of malignancy. Routine yearly mammograms recommended. ASSESSMENT CATEGORY: BIRADS Category 1: Negative. A letter regarding these results will be sent to the patient by the facility within 30 days. FOLLOW UP RECOMMENDATION: Yearly follow up mammogram recommended. (A) Approximately 10% of breast cancers are not detected by mammography. A normal mammogram should not delay biopsy of a clinically suspicious abnormality. Electronically Signed: Jan Elam MD at 19:51 EST ,
== END | disposition home or self-care (01) ==
LOC: OPBI 13:37
PROVIDERS: PCP Family Medicine; Referring Provider Family Medicine; Visit Provider Family Medicine
DX: Z12.31 Encounter for screening mammogram for malignant neoplasm of breast (principal)
CPT/HCPCS: 77063; 77067